=== PATIENT | female | born 1980 | race Caucasian/White ===

== ENCOUNTER 2021-11-19 14:46 | Observation (INO) ==
[2021-11-19 15:38] LABS: Basophils # 0.1 K/mcL (0.0-0.2); Basophils % 0.5 %; Eosinophils # 0.3 K/mcL (0.0-0.6); Eosinophils % 3.3 %; Hematocrit 42.5 % (35.3-44.9); Hemoglobin 14.3 g/dL (11.5-15.4); Immature Granulocytes % 0.1 % (0-4); Lymphocytes # 3.9 K/mcL (0.6-4.6); Lymphocytes % 41.2 %; Mean Corpuscular HGB Conc 33.6 g/dL (31.6-35.5); Mean Corpuscular Hemoglobin 29.2 pg (28.0-33.3); Mean Corpuscular Volume 86.9 fL (83.0-100.0); Mean Platelet Volume 10.2 fL (9.4-12.4); Monocytes # 0.6 K/mcL (0.0-1.3); Monocytes % 6.3 %; Neutrophils # 4.5 K/mcL (1.6-8.9); Platelet Count 265 K/mcL (140-400); Red Blood Count 4.89 M/mcL (3.82-4.97); Red Cell Distribution Width 12.4 % (11.5-14.5); Segmented Neutrophils % 48.6 %; White Blood Count 9.4 K/mcL (4.3-11.1)
[2021-11-19 15:40] LABS: BUN/Creatinine Ratio 15 (6-26); Blood Urea Nitrogen 13 mg/dL (6-20); Calcium 9.2 mg/dL (8.6-10.3); Carbon Dioxide 24 mEq/L (23-29); Chloride 106 mEq/L (98-107); Glucose 188 mg/dL (70-105); Osmolality,Calculated 289 (280-300); Potassium 3.9 mEq/L (3.5-5.1); Sodium 137 mEq/L (136-145); eGFR For African Americans > 60 (> 60); eGFR For Non-African Americans > 60 (> 60)
[2021-11-19 15:41] LABS: Troponin I < 0.03 ng/mL (< 0.04)
[2021-11-19] MEDS ORDERED: Iopamidol - 370 500 ML MLS IVP ONE (16:41)
[2021-11-19] MEDS ORDERED: Aspirin 325 MG TABLET PO ONE (16:41)
[2021-11-19] MEDS: Nitroglycerin 0.4 MG TAB.SUBL SL PRN ×2 (16:52→17:24)
[2021-11-19] MEDS ORDERED: hydrOXYzine pamoate 25 MG CAPSULE PO PRN (21:33)
[2021-11-19] MEDS ORDERED: Morphine Sulfate 2 MG/ML SYRINGE IVP PRN (21:39)
[2021-11-19] MEDS ORDERED: Perflutren Lipid Microsphere 1.3 ML in 0.9 % Sodium Chloride 8.7 ML IVP PRN (21:40)
[2021-11-19] MEDS ORDERED: D5% in Water 1,000 ML IVC PRN (21:41)
[2021-11-19] MEDS ORDERED: *HR* Dextrose 50 % in Water (Syg) 50 ML SYRINGE IVP PRN (21:41)
[2021-11-19] MEDS ORDERED: Dextrose Gel 15 GM/37.5 ML TUBE PO PRN ×2 (21:41)
[2021-11-19] MEDS ORDERED: ARIPiprazole 5 MG TABLET PO SCH (21:45)
[2021-11-19] MEDS ORDERED: Ondansetron 4 MG/2 ML VIAL IVP PRN (21:48)
[2021-11-19] MEDS ORDERED: Acetaminophen 325 MG TABLET PO PRN (21:48)
[2021-11-19] MEDS ORDERED: Naloxone 0.4 MG/ML INJ IVP PRN (21:48)
[2021-11-19] MEDS: clonazePAM 1 MG TABLET PO SCH (22:07)
[2021-11-20] MEDS: Insulin LISPRO 300 UNITS/3 ML VIAL SUBQ SCH ×4 (01:01→17:17)
[2021-11-20 02:10] LABS: Hemoglobin 13.8 g/dL (11.5-15.4); Mean Corpuscular HGB Conc 33.7 g/dL (31.6-35.5); Mean Corpuscular Hemoglobin 29.3 pg (28.0-33.3); Platelet Count 227 K/mcL (140-400); Red Blood Count 4.71 M/mcL (3.82-4.97); Red Cell Distribution Width 12.4 % (11.5-14.5); White Blood Count 10.4 K/mcL (4.3-11.1)
[2021-11-20 02:24] LABS: BUN/Creatinine Ratio 18 (6-26); Blood Urea Nitrogen 14 mg/dL (6-20); Calcium 8.7 mg/dL (8.6-10.3); Carbon Dioxide 23 mEq/L (23-29); Chloride 107 mEq/L (98-107); Chol/HDL Ratio 5.3 (0-4.9); Cholesterol 144 mg/dL (< 200); Glucose 177 mg/dL (70-105); HDL Cholesterol 27 mg/dL (40-59); LDL Cholesterol,Calculated 63 mg/dL (< 100); Osmolality,Calculated 291 (280-300); Potassium 3.8 mEq/L (3.5-5.1); Sodium 138 mEq/L (136-145); Triglycerides 269 mg/dL (< 150); eGFR For African Americans > 60 (> 60); eGFR For Non-African Americans > 60 (> 60)
[2021-11-20 02:25] LABS: Troponin I < 0.03 ng/mL (< 0.04)
[2021-11-20 03:08] LABS: Estimated Average Glucose 166 mg/dl; Hemoglobin A1C 7.4 %
[2021-11-20] MEDS: *HR* Heparin 5,000 UNIT/ML VIAL SQ SCH ×2 (05:44→14:02)
[2021-11-20] MEDS ORDERED: Regadenoson 0.4 MG/5 ML SYRINGE IVP ONE ×2 (05:58→10:42)
[2021-11-20] MEDS: clonazePAM 1 MG TABLET PO SCH ×2 (08:02→14:02)
[2021-11-20] MEDS ORDERED: Aspirin Enteric Coated 81 MG Tablet PO SCH (09:00)
[2021-11-20 18:52] VITALS: BP 114/82; PULSE 98; TEMP 98.6; O2SAT 97
[2021-11-20] MEDS ORDERED: Loratadine 10 MG TABLET PO SCH (21:00)
[2021-11-20] MEDS ORDERED: Propranolol LA (24 HR) 60 MG CAP.SA.24H PO SCH (21:00)
[2021-11-20] MEDS ORDERED: tiZANidine 4 MG TABLET PO SCH (21:00)
== END 2021-11-20 19:33 | disposition home or self-care (01) ==
LOC: EMEROOARM 14:46 → 3BNU 14:46 → SUATTDRO 19:18 → 3BNU 19:56
PROVIDERS: ADMIT Student in an Organized Health Care Education/Training Program; ATTEND Nurse Practitioner